=== PATIENT | female | born 1935 ===

== ENCOUNTER 2018-01-03 11:14 | Outpatient (CLI) | payer OTHER ==
[~2018-01-03 11:14] MED LIST: MICARDIS80 MG; SIMVASTATIN10 MG; ZETIA10 MG
== END 2018-01-03 11:22 | disposition home or self-care (01) ==
LOC: NUCLEAR 11:14
DX: I65.29 Occlusion and stenosis of unspecified carotid artery (principal); I11.9 Hypertensive heart disease without heart failure; I73.9 Peripheral vascular disease, unspecified

== ENCOUNTER 2021-01-25 13:04 | Outpatient (CLI) | payer OTHER | END 2021-01-25 13:07 | disposition home or self-care (01) | LOC: LAB 13:04 | PROVIDERS: ATTEND Orthopaedic Surgery | DX: E56.1 Deficiency of vitamin K (principal) ==

== ENCOUNTER 2021-04-14 12:16 | Outpatient (CLI) | payer OTHER | END 2021-04-14 12:22 | disposition home or self-care (01) | LOC: RAD 12:16 | PROVIDERS: ATTEND Orthopaedic Surgery | DX: M18.12 Unilateral primary osteoarthritis of first carpometacarpal joint, left hand (principal); M18.11 Unilateral primary osteoarthritis of first carpometacarpal joint, right hand ==